=== PATIENT | female | born 1955 | race Caucasian/White ===

== ENCOUNTER 2019-09-02 16:09 | Inpatient (IN) | payer BC ==
[~2019-09-02] VITALS: Ht 160 cm; Wt 87.3 kg
[~2019-09-02 16:09] MED LIST: ASPI-1265 PO; CHOL100010 PO; DIT5T PO; EST1T PO; FEXO-124 PO; FLAX100031 PO; FOLI1TAB2 PO; IBUP-1984 PO; IPRA12.94 IH; LACT1CAP65 PO; OMEG1CAP13 PO; POTASSIUM; PSEU-225 PO; TIOT18CA7 IH; VITA-268 PO
[2019-09-02] MEDS ORDERED: nitroGLYCERIN 0.4mg SUBLingual tab SL PRN ×2 (16:30→23:35)
[2019-09-02] MEDS ORDERED: aspirin 81mg tab.chew PO ONE (16:30)
[2019-09-02 16:36] LABS: BASOPHILS # (AUTO) 0.1 X10'3 (0-0.2); BASOPHILS % (AUTO) 0.8 % (0-1); EOSINOPHILS # (AUTO) 0.2 X10'3 (0-0.9); EOSINOPHILS % (AUTO) 2.2 % (0-6); HEMATOCRIT 38.8 % (35.0-45.0); LYMPHOCYTES # (AUTO) 2.4 X10'3 (1.1-4.8); LYMPHOCYTES % (AUTO) 25.2 % (21-51); MEAN CORPUSCULAR HEMOGLOBIN 29.6 PG (27.0-31.0); MEAN CORPUSCULAR HGB CONC 33.5 g/dL (33.0-36.5); MEAN CORPUSCULAR VOLUME 88.2 FL (78-98); MEAN PLATELET VOLUME 7.9 FL (7.4-10.4); MONOCYTES # (AUTO) 0.7 X10'3 (0-0.9); MONOCYTES % (AUTO) 7.5 % (2-12); NEUTROPHILS # (AUTO) 6.1 X10'3 (1.8-7.7); NEUTROPHILS % (AUTO) 64.3 % (42-75); PLATELET COUNT 357 X10'3 (140-440); RED CELL DISTRIBUTION WIDTH 13.7 % (11.5-14.5); WHITE BLOOD COUNT 9.5 X10'3 (4.5-11.0)
[2019-09-02 16:53] LABS: ALANINE AMINOTRANSFERASE 62 U/L (12-78); ALBUMIN 3.6 G/DL (3.4-5.0); ALBUMIN/GLOBULIN RATIO 0.9 (1.1-1.5); ALKALINE PHOSPHATASE 109 IU/L (46-116); ANION GAP 3 (8-16); ASPARTATE AMINO TRANSFERASE 38 U/L (10-37); BILIRUBIN,TOTAL 0.2 MG/DL (0.1-1.0); BLOOD UREA NITROGEN 20 MG/DL (7-18); BUN/CREATININE RATIO 23.3 (6.6-38.0); CHLORIDE 106 MMOL/L (99-107); CREATININE 0.86 MG/DL (0.40-0.90); GLUCOSE 118 MG/DL (70-104); POTASSIUM 4.4 MMOL/L (3.5-5.1); SODIUM 141 MMOL/L (135-145); TOTAL CARBON DIOXIDE 32.1 MMOL/L (24-32); TOTAL PROTEIN 7.4 G/DL (6.4-8.2); eGFR 67 ML/MIN
[2019-09-02 17:00] LABS: PARTIAL THROMBOPLASTIN TIME 23 SECONDS (22-32)
[2019-09-02] MEDS ORDERED: cloNIDine 0.1 mg tablet PO ONE ×3 (17:10→20:10)
[2019-09-02] MEDS ORDERED: aspirin 325mg tablet PO ONE (19:25)
[2019-09-02] MEDS ORDERED: labetalol 20mg/4ml (5mg/ml) syringe IV PRN (19:25)
[2019-09-02] MEDS ORDERED: hydrALAZINE 20mg/ml inj. IV ONE (20:40)
[2019-09-02] MEDS ORDERED: PSEU-259 PO (21:50)
[2019-09-02] MEDS ORDERED: IBUP-1984 PO (21:50)
[2019-09-02] MEDS ORDERED: magnesium 4gm in 100ml NS 100 ML IV PRN (22:20)
[2019-09-02] MEDS ORDERED: magnesium 2GM in 50ml NS 50 ML IV PRN (22:20)
[2019-09-02] MEDS ORDERED: docusate sod 100mg capsule PO PRN (22:20)
[2019-09-02] MEDS ORDERED: ondansetron/PF 4mg/2ml inj IV PRN (22:20)
[2019-09-02] MEDS ORDERED: potassium CL 10mEq/100ml bag 100 ML IV PRN ×2 (22:20)
[2019-09-02] MEDS ORDERED: mag hydrox/Alum hydrox/simeth 30ml oral suspension PO PRN (22:20)
[2019-09-02] MEDS ORDERED: potassium Cl 20 mEq SR tablet PO PRN ×2 (22:20)
--- NOTE | 2019-09-02 22:29 | NUR ---
Asked to review chart for admit to floor.
[2019-09-02 23:29] VITALS: BP 151/77
[2019-09-02] MEDS ORDERED: regadenoson 0.4mg/5ml syringe IV ONE (23:35)
[2019-09-02] MEDS ORDERED: metoprolol tartrate 1mg/ml inj IV PRN (23:35)
[2019-09-02] MEDS ORDERED: aminophylline 250mg/10ml inj. IV PRN (23:35)
[2019-09-03] VITALS (12 sets, daily range): BP systolic 141–185; BP diastolic 61–100
--- NOTE | 2019-09-03 00:01 | NUR ---
Patient arrived at [facility] at 2320 from ER. Alert, oriented x4. Not complaining of chest pain. Not on any distress at this time.
[2019-09-03] MEDS ORDERED: hydrALAZINE 20mg/ml inj. IV PRN (00:05)
[2019-09-03 04:37] LABS: BASOPHILS # (AUTO) 0.1 X10'3 (0-0.2); BASOPHILS % (AUTO) 0.7 % (0-1); EOSINOPHILS # (AUTO) 0.1 X10'3 (0-0.9); EOSINOPHILS % (AUTO) 1.3 % (0-6); HEMATOCRIT 38.8 % (35.0-45.0); HEMOGLOBIN 13.2 g/dl (12.0-16.0); LYMPHOCYTES # (AUTO) 2.5 X10'3 (1.1-4.8); LYMPHOCYTES % (AUTO) 25.8 % (21-51); MEAN CORPUSCULAR HEMOGLOBIN 30.1 PG (27.0-31.0); MEAN CORPUSCULAR VOLUME 88.3 FL (78-98); MEAN PLATELET VOLUME 8.1 FL (7.4-10.4); MONOCYTES # (AUTO) 0.6 X10'3 (0-0.9); NEUTROPHILS # (AUTO) 6.5 X10'3 (1.8-7.7); NEUTROPHILS % (AUTO) 66.2 % (42-75); PLATELET COUNT 323 X10'3 (140-440); RED CELL DISTRIBUTION WIDTH 13.8 % (11.5-14.5); WHITE BLOOD COUNT 9.8 X10'3 (4.5-11.0)
[2019-09-03 04:51] LABS: ALANINE AMINOTRANSFERASE 54 U/L (12-78); ALBUMIN 3.3 G/DL (3.4-5.0); ALBUMIN/GLOBULIN RATIO 0.9 (1.1-1.5); ALKALINE PHOSPHATASE 88 IU/L (46-116); ANION GAP 5 (8-16); ASPARTATE AMINO TRANSFERASE 47 U/L (10-37); BILIRUBIN,TOTAL 0.2 MG/DL (0.1-1.0); BLOOD UREA NITROGEN 19 MG/DL (7-18); BUN/CREATININE RATIO 23.2 (6.6-38.0); CALCIUM 9.1 MG/DL (8.5-10.1); CHLORIDE 106 MMOL/L (99-107); CREATININE 0.82 MG/DL (0.40-0.90); GLUCOSE 108 MG/DL (70-104); POTASSIUM 4.2 MMOL/L (3.5-5.1); SODIUM 142 MMOL/L (135-145); TOTAL CARBON DIOXIDE 31.1 MMOL/L (24-32); eGFR 71 ML/MIN
--- NOTE | 2019-09-03 05:54 | NUR ---
PAGER ID: [phone] MESSAGE: Erickson Chang 63 F Rm 309 who is admitted for hypertensive urgency with Current SBP in 150's complaining of Headache. Requesting something for pain although she is allergic to codeine, hydrocodone, acetoaminophin. [facility] [id number]
--- NOTE | 2019-09-03 05:58 | NUR ---
patient stated that she is not allergic to acetoaminophen and she has taken it before.
[2019-09-03] MEDS ORDERED: acetaminophen 325mg tablet PO PRN (06:00)
--- NOTE | 2019-09-03 06:12 | NUR ---
Problems reprioritized. Patient report given to Kirby, questions answered & plan of care reviewed with .
[2019-09-03] MEDS ORDERED: loratadine 10mg tablet PO SCH (08:00)
[2019-09-03] MEDS ORDERED: enoxaparin 40mg/0.4ml syringe SQ SCH (08:00)
[2019-09-03] MEDS ORDERED: oxybutynin 5mg tablet PO SCH (08:00)
[2019-09-03] MEDS ORDERED: OMEGA-3/DHA/EPA/FISH OIL 1 EACH CAPSULE.DR PO SCH (08:00)
[2019-09-03] MEDS ORDERED: vitamin B comp w/Vit. C tab 1 TAB TABLET PO SCH (08:00)
[2019-09-03] MEDS ORDERED: vitamin D (cholecalciferol) 1,000 unit tablet PO SCH (08:00)
[2019-09-03] MEDS ORDERED: aspirin 81mg tab.chew PO SCH (08:00)
[2019-09-03] MEDS ORDERED: K and/or MAG REPLACEMENT MC SCH (08:00)
[2019-09-03] MEDS ORDERED: furosemide 20 MG/2 ML vial IV ONE (10:50)
--- NOTE | 2019-09-03 12:00 | NUR ---
PAGED DR. SERNA "RE; LJ LEE IN 309. URINE OUTPUT AFTER LASIX WAS 600 ML. ALSO, RAMON RESULTS ARE MILDLY POSITIVE? LET ME KNOW WHAT YOU THINK. THANK YOU, HIRO ARMSTRONG [phone]"
[2019-09-03] MEDS ORDERED: FURO-150 PO (14:01)
--- NOTE | 2019-09-03 15:30 | NUR ---
PROVIDED PATIENT WITH DISCHARGE INSTRUCTIONS+PACKET WELL NEW RX INFO, AND INSTRUCTIONS TO STOP POTASSIUM PER MD ORDER. PATIENT ADVISED TO RESUME HER HOME REGIMEN OF LISINOPRIL DAILY. SHE WILL FOLLOW UP WITH DR. TY, PHONE NUMBER PROVIDED TO PATIENT. PT'S IS AT BEDSIDE FOR DIRECTIONS, AND VERBALIZES UNDERSTANDING. IV REMOVED, CATHETER INTACT, MINIMAL BLEEDING CLEAN GAUZE APPLIED AND SECURED WITH TAPE. PT DENIES ANY QUESTIONS OR CONCERNS. PT KNOWS HER PRESCRIPTION FOR LASIX WAS SENT TO HER PREFERRED PHARMACY. ACCOMPANIED DOWN VIA WHEELCHAIR TO GO HOME VIA PRIVATE VEHICLE. (DISCHARGE DELAYED SO PATIENT COULD COMPLETE HER ECHOCARDIOGRAM)
== END 2019-09-03 16:20 | disposition home or self-care (01) | DRG 305 ==
LOC: ER 16:09 → ED HOLD 22:20 → MED 3N 23:20
PROVIDERS: ADMIT Family Medicine; ATTEND Internal Medicine
PROC: 4A02XM4 Measurement of Cardiac Total Activity, External Approach (ICD-10-PCS; principal; 2019-09-03)
DX: I16.0 Hypertensive urgency (principal); E66.9 Obesity, unspecified; G62.9 Polyneuropathy, unspecified; I10 Essential (primary) hypertension; Z79.82 Long term (current) use of aspirin; Z79.899 Other long term (current) drug therapy; Z80.0 Family history of malignant neoplasm of digestive organs; Z68.34 Body mass index [BMI] 34.0-34.9, adult; Z90.710 Acquired absence of both cervix and uterus; Z88.5 Allergy status to narcotic agent; Z88.0 Allergy status to penicillin; Z88.2 Allergy status to sulfonamides
CPT/HCPCS: 36415; 71045; 78452; 80053; 83735; 83880; 84484; 85025; 85610; 85730; 87081; 93005; 93017; 93306; 96374; 96375; 97110; 97161; 97530; 99291; A9500; G0378; J0360; J1940; J2785; J3490